=== PATIENT | male | born 1965 | race Caucasian/White ===

== ENCOUNTER → 2021-04-29 | Outpatient (CLI) | payer OTHER ==
[~2021-04-29] MED LIST: DECADRON6 MG PO; Tussinex PO
== END ==
LOC: KOH-I 16:38
DX: S29.011A Strain of muscle and tendon of front wall of thorax, initial encounter (principal)
CPT/HCPCS: 71046

== ENCOUNTER → 2021-07-28 | Outpatient (CLI) | payer BC | LOC: CT 12:37 | DX: C20 Malignant neoplasm of rectum (principal) | CPT/HCPCS: 71260; Q9967 ==